=== PATIENT | male | born 1950 | race Caucasian/White ===

== ENCOUNTER → 2024-02-03 13:46 | Outpatient (REF) | payer MEDICARE, OTHER, SELFPAY | LOC: RAD 13:46 | PROVIDERS: ATTENDING PHYSICIAN Surgery Vascular Surgery; FAMILY PHYSICIAN Family Medicine | DX: I73.9 Peripheral vascular disease, unspecified (principal); I71.43 Infrarenal abdominal aortic aneurysm, without rupture | CPT/HCPCS: 75635; Q9967 ==

== ENCOUNTER → 2024-05-11 09:23 | Outpatient (REF) | payer MEDICARE, OTHER, SELFPAY | LOC: RAD 09:23 | PROVIDERS: ATTENDING PHYSICIAN Surgery Vascular Surgery; FAMILY PHYSICIAN Family Medicine | DX: I73.9 Peripheral vascular disease, unspecified (principal) | CPT/HCPCS: 93922 ==

== ENCOUNTER → 2024-12-02 06:24 | Outpatient (REF) | payer MEDICARE, OTHER, SELFPAY | LOC: RAD 06:24 | PROVIDERS: ATTENDING PHYSICIAN Surgery Vascular Surgery; FAMILY PHYSICIAN Family Medicine | DX: I71.43 Infrarenal abdominal aortic aneurysm, without rupture (principal); I65.29 Occlusion and stenosis of unspecified carotid artery | CPT/HCPCS: 74174; Q9967 ==

== ENCOUNTER → 2024-12-09 08:03 | Outpatient (REF) | payer MEDICARE, OTHER, SELFPAY | LOC: RAD 08:03 | PROVIDERS: ATTENDING PHYSICIAN Surgery Vascular Surgery; FAMILY PHYSICIAN Family Medicine | DX: I73.9 Peripheral vascular disease, unspecified (principal); I65.29 Occlusion and stenosis of unspecified carotid artery; I65.23 Occlusion and stenosis of bilateral carotid arteries | CPT/HCPCS: 93880; 93922; 93925 ==